=== PATIENT | male | born 1955 | race African-American/Black ===

== ENCOUNTER 2020-12-08 12:53 | Observation (INO) ==
[2020-12-08] MEDS ORDERED: NITROGLYCERIN SL 0.4 MG TABLET SL PRN (13:18)
[2020-12-08 13:36] LABS: Basophils % 0.8 % (0.0-0.8); Eosinophils # 0.1 10*3/uL (0.0-0.87); Eosinophils % 2.1 % (0.00-10.9); Hematocrit 34.1 VOL% (42.0-52.0); Immature Granulocytes % 0.2 %; Immature Granulocytes Absolute 0.01 #; Lymphocytes # 2.1 10*3/uL (1.4-4.0); Lymphocytes % 40.2 % (21.2-54.2); Mean Corpuscular HGB Conc 32.3 GM/DL (32-36); Mean Corpuscular Volume 91.4 FL (87-102); Mean Platelet Volume 10.3 FL (9.6-12.0); Monocytes % 12.5 % (1.7-12.7); Neutrophils % 44.2 % (38.7-73.9); Platelet Count 177 T/CUMM (130-400); Red Blood Count 3.73 MC/CUMM (3.8-5.5); Red Cell Distribution Width 15.1 % (9.3-17.3); White Blood Count 5.2 T/CUMM (4-12)
[2020-12-08 13:49] LABS: PT Patient Result 11.4 SECS (10.5-12.0)
[2020-12-08 14:04] LABS: Albumin 3.6 G/DL (3.4-5.0); Bilirubin,Total 0.5 MG/DL (0.2-1.0); Calcium 9.4 MG/DL (8.5-10.1); Osmolality,Calculated 280.1 MOS/KG (273-304); Potassium 4.5 MMOL/L (3.5-5.1); Total Protein 9.2 G/DL (6.4-8.2)
[2020-12-08] MEDS ORDERED: ONDANSETRON 4 MG/2 ML VIAL IV PRN (14:41)
[2020-12-08] MEDS ORDERED: VIAGRA 100 MG PO PRN (14:42)
[2020-12-08] MEDS ORDERED: hydrALAZINE 20 MG/1 ML VIAL IV PRN (14:43)
[2020-12-08] MEDS ORDERED: SEVELAMER CARBONATE 800 MG TABLET PO SCH (15:00)
[2020-12-08] MEDS: BRIMONIDINE 0.2% OPH SOLN 5 ML BOTTLE BOTH EYES SCH ×2 (16:55→21:40)
[2020-12-08] MEDS: SEVELAMER CARBONATE 800 MG TABLET PO SCH (17:29)
[2020-12-08] MEDS: SIMETHICONE CHEW 80 MG TABLET PO SCH ×2 (17:29→21:38)
[2020-12-08] MEDS ORDERED: CALCIUM ACETATE 667 MG CAPSULE PO SCH (17:30)
[2020-12-08] MEDS ORDERED: INSULIN GLARGINE 100 UNIT/ML SUBCUT SCH (21:00)
[2020-12-08] MEDS ORDERED: TRAVOPROST 0.004% OPH SOLN 2.5 ML BOTTLE BOTH EYES SCH (21:00)
[2020-12-08] MEDS: DOCUSATE SODIUM 100 MG CAPSULE PO SCH (21:34)
[2020-12-08] MEDS: ASCORBIC ACID 500 MG TABLET PO SCH (21:34)
[2020-12-08] MEDS: carvediloL 12.5 MG TABLET PO SCH (21:34)
[2020-12-08] MEDS: OMEGA 3 ACID ETHYL ESTERS 1 GM CAPSULE PO SCH (21:35)
[2020-12-08] MEDS: POLYETHYLENE GLYCOL POWDER 17 GM PACK PO SCH (21:42)
[2020-12-09 05:18] LABS: Calcium 9.1 MG/DL (8.5-10.1); Osmolality,Calculated 286.7 MOS/KG (273-304); Potassium 4.7 MMOL/L (3.5-5.1); Risk Ratio 3.69; Thyroid Stimulating Hormone 3.72 uIU/ml (0.358-3.74); VLDL CHOLESTEROL 34.2 MG/DL
[2020-12-09 06:08] VITALS: BP 144/60
[2020-12-09] MEDS ORDERED: ACETAMINOPHEN 325 MG TABLET PO PRN (08:22)
[2020-12-09] MEDS: INSULIN LISPRO 100 UNIT/ML SUBCUT SCH ×2 (08:39→11:16)
[2020-12-09] MEDS: POLYETHYLENE GLYCOL POWDER 17 GM PACK PO SCH (08:40)
[2020-12-09] MEDS: carvediloL 12.5 MG TABLET PO SCH (08:41)
[2020-12-09] MEDS: OMEGA 3 ACID ETHYL ESTERS 1 GM CAPSULE PO SCH (08:41)
[2020-12-09] MEDS: SIMETHICONE CHEW 80 MG TABLET PO SCH ×2 (08:41→12:29)
[2020-12-09] MEDS: DOCUSATE SODIUM 100 MG CAPSULE PO SCH (08:41)
[2020-12-09] MEDS: CALCIUM ACETATE 667 MG CAPSULE PO SCH ×2 (08:41→11:16)
[2020-12-09] MEDS: SEVELAMER CARBONATE 800 MG TABLET PO SCH ×2 (08:42→11:16)
[2020-12-09] MEDS: BRIMONIDINE 0.2% OPH SOLN 5 ML BOTTLE BOTH EYES SCH ×2 (08:42→14:47)
[2020-12-09] MEDS: LACTOBACILLUS ACIDOPHILUS/BULGARICUS CAPLET PO SCH ×2 (08:42→11:15)
[2020-12-09] MEDS: ASCORBIC ACID 500 MG TABLET PO SCH (08:42)
[2020-12-09] MEDS ORDERED: PANTOPRAZOLE 40 MG TABLET PO SCH ×2 (09:00)
[2020-12-09] MEDS ORDERED: ATORVASTATIN 10 MG TABLET PO SCH (09:00)
[2020-12-09] MEDS ORDERED: ASPIRIN EC 81 MG TABLET PO SCH (09:00)
[2020-12-09] MEDS ORDERED: SERTRALINE 50 MG TABLET PO SCH (09:00)
[2020-12-09] MEDS ORDERED: CHOLESTYRAMINE/ASPARTAME 4 GM PACK PO SCH (09:00)
[2020-12-09] MEDS ORDERED: carvediloL 25 MG TABLET PO SCH (21:00)
== END 2020-12-09 15:11 | disposition home or self-care (01) ==
LOC: N.EDINP 12:53 → N.ED 12:53 → SUATTDRO 14:41 → N.TELES 16:21
PROVIDERS: ADMIT Family Medicine; ATTEND Internal Medicine Geriatric Medicine